=== PATIENT | female | born 1965 | race Caucasian/White ===

== ENCOUNTER 2016-06-03 15:52 | Emergency (ER) | payer MEDICAID ==
[~2016-06-03] VITALS: Ht 152.4 cm; Wt 72.6 kg
[~2016-06-03 15:52] MED LIST: ALBMDI INH; BECL8.7A6 INH
--- NOTE | 2016-06-03 15:55 | NUR ---
Patient to ER bed 3 to gown for evaluation. Side rails up. Report given to Yasmine PORTILLO.
--- NOTE | 2016-06-03 16:07 | NUR ---
Patient to ER C/O severe dizziness with nausea and the feeling of throwing up which started today. Denies any health problems. AAOx4, unlabored breathing, no signs of acute distress.
[2016-06-03 16:11] VITALS: BP_SYST 142
--- NOTE | 2016-06-03 16:22 | NUR ---
ER MARIELOS Car at bedside for evaluation
--- NOTE | 2016-06-03 16:40 | NUR ---
# 20 gauge angiocath placed to right ac. Use of asceptic technique. Opsite placed over site. Blood return noted. Blood for lab drawn from site. Flushed with 10 cc of normal saline. No evidence of infiltration noted. Patient tolerated well.
[2016-06-03] MEDS ORDERED: ONDANSETRON HCL 4 MG/2 ML VIAL IVP ONE (16:45)
[2016-06-03] MEDS ORDERED: NACL 0.9% 1,000 ML IV ONE (16:45)
[2016-06-03 16:56] LABS: BASOPHILS % (AUTO) 0.4 % (0.0-2.0); EOSINOPHILS # (AUTO) 0.2 K/uL (0.0-0.4); EOSINOPHILS % (AUTO) 3.7 % (0.0-4.0); HEMATOCRIT 37.7 % (36-48); HEMOGLOBIN 12.9 g/dL (12.0-16.0); LYMPHOCYTES # (AUTO) 2.1 K/uL (1.0-5.5); LYMPHOCYTES % (AUTO) 35.8 % (20.5-51.5); MEAN CORPUSCULAR HEMOGLOBIN 30 pg (27-31); MEAN CORPUSCULAR HGB CONC 34 % (32-36); MEAN CORPUSCULAR VOLUME 86 fL (79.0-98.0); MONOCYTES # (AUTO) 0.4 K/uL (0.0-1.0); MONOCYTES % (AUTO) 6.9 % (1.7-9.3); NEUTROPHILS # (AUTO) 3.1 K/uL (1.8-7.7); NEUTROPHILS % (AUTO) 53.2 % (40.0-70.0); PLATELET COUNT (AUTO) 219 K/uL (130-430); RED BLOOD CELL COUNT(AUTO) 4.38 MIL/uL (4.2-6.2); RED CELL DISTRIBUTION WIDTH 13.4 % (9.0-15.0); WHITE BLOOD COUNT (AUTO) 5.9 K/uL (4.8-10.8)
[2016-06-03 17:11] LABS: BILIRUBIN,URINE NEGATIVE (NEGATIVE); BLOOD, URINE 1+ (NEGATIVE); CALCIUM 8.6 mg/dL (8.4-11.0); CLARITY/URINE CLEAR (CLEAR); COLOR,URINE YELLOW (YELLOW); CREATININE 0.71 mg/dL (0.55-1.30); GLUCOSE,URINE NEGATIVE (NEGATIVE); KETONES,URINE NEGATIVE (NEGATIVE); LEUKOCYTE ESTERASE ,URINE NEGATIVE (NEGATIVE); NITRITE, URINE NEGATIVE (NEGATIVE); POTASSIUM 3.4 mmol/L (3.5-5.1); PROTEIN URINE NEGATIVE (NEGATIVE); UROBILINOGEN,URINE 0.2 (0.2-1.0)
[2016-06-03 17:16] LABS: ALBUMIN 3.9 g/dL (3.4-4.8); TOTAL BILIRUBIN 0.5 mg/dL (0.0-1.0); TOTAL PROTEIN, SERUM 7.1 g/dL (6.4-8.3)
--- NOTE | 2016-06-03 17:31 | NUR ---
Patient states that she feels much better, denies nausea & dizziness. ER CODE ENFORCEMENT OFFICER Joceline veronica
[2016-06-03 17:35] LABS: BACTERIA,URINE FEW /HPF (None Seen); WBC,URINE 0-3 /HPF (0-3)
[2016-06-03 17:36] LABS: MUCUS,URINE None Seen /LPF (None Seen)
[2016-06-03 17:53] VITALS: BP_SYST 116
--- NOTE | 2016-06-03 17:53 | NUR ---
Patient given written and verbal discharge instructions and verbalizes understanding. ER MD Peng discussed with patient the results and treatment provided. Patient in stable condition. ID arm band removed. IV catheter removed intact and dressing applied, no active bleeding. Rx of meclizine & zofran given. Patient educated on pain management and to follow up with PMD. Pain Scale 0/10. Opportunity for questions provided and answered.
== END 2016-06-03 17:53 | disposition home or self-care (01) ==
LOC: SED 15:52
DX: R42 Dizziness and giddiness (principal); R11.0 Nausea; R19.7 Diarrhea, unspecified; R03.0 Elevated blood-pressure reading, without diagnosis of hypertension; J45.909 Unspecified asthma, uncomplicated; Z88.6 Allergy status to analgesic agent
CPT/HCPCS: 36415; 70450; 80053; 81000; 81025; 84484; 85025; 93005; 96361; 96374; 99285; J2405; J7030

== ENCOUNTER 2016-06-21 17:06 | Emergency (ER) | payer MEDICAID ==
[~2016-06-21] VITALS: Ht 152.4 cm; Wt 81.6 kg
[2016-06-21 17:07] VITALS: BP_SYST 128
[2016-06-21] MEDS: PROCHLORPERAZINE EDISYLATE 10 MG/2 ML VIAL IVP ONE (18:00)
[2016-06-21] MEDS: ONDANSETRON 4 MG ODT TAB PO ONE (18:00)
[2016-06-21] MEDS ORDERED: KETOROLAC TROMETHAMINE 30 MG VIAL IVP ONE (18:00)
[2016-06-21] MEDS: NACL 0.9% 1,000 ML IV ONE (18:00)
[2016-06-21 19:16] LABS: BASOPHILS % (AUTO) 0.2 % (0.0-2.0); EOSINOPHILS % (AUTO) 0.6 % (0.0-4.0); HEMATOCRIT 40.3 % (36-48); HEMOGLOBIN 13.4 g/dL (12.0-16.0); LYMPHOCYTES # (AUTO) 1.7 K/uL (1.0-5.5); LYMPHOCYTES % (AUTO) 21.5 % (20.5-51.5); MEAN CORPUSCULAR HEMOGLOBIN 29 pg (27-31); MEAN CORPUSCULAR HGB CONC 33 % (32-36); MEAN CORPUSCULAR VOLUME 87 fL (79.0-98.0); MONOCYTES # (AUTO) 0.5 K/uL (0.0-1.0); MONOCYTES % (AUTO) 5.9 % (1.7-9.3); NEUTROPHILS # (AUTO) 5.6 K/uL (1.8-7.7); NEUTROPHILS % (AUTO) 71.8 % (40.0-70.0); PLATELET COUNT (AUTO) 244 K/uL (130-430); RED BLOOD CELL COUNT(AUTO) 4.61 MIL/uL (4.2-6.2); RED CELL DISTRIBUTION WIDTH 12.8 % (9.0-15.0); WHITE BLOOD COUNT (AUTO) 7.8 K/uL (4.8-10.8)
[2016-06-21 19:21] LABS: CALCIUM 8.9 mg/dL (8.4-11.0); CREATININE 0.68 mg/dL (0.55-1.30); POTASSIUM 3.7 mmol/L (3.5-5.1)
[2016-06-21 19:25] LABS: TOTAL BILIRUBIN 0.6 mg/dL (0.0-1.0); TOTAL PROTEIN, SERUM 7.4 g/dL (6.4-8.3)
[2016-06-21] MEDS: MAG HYDROX/AL HYDROX/SIMETH 30 ML, BELLADONNA ALKALOIDS/PHENOBARB 10 ML, LIDOCAINE VISC... PO ONE ×3 (20:08)
[2016-06-21] MEDS: PANTOPRAZOLE SODIUM 40 MG TAB PO ONE (20:08)
[2016-06-21] MEDS: PROCHLORPERAZINE EDISYLATE 10 MG/2 ML VIAL IM ONE (20:08)
[2016-06-21 20:53] VITALS: BP_SYST 120
== END 2016-06-21 20:53 | disposition home or self-care (01) ==
LOC: SED 17:06
DX: K21.9 Gastro-esophageal reflux disease without esophagitis (principal); J45.909 Unspecified asthma, uncomplicated; Z88.6 Allergy status to analgesic agent
CPT/HCPCS: 36415; 74176; 80053; 83690; 85025; 96372; 99285; J0780; J2001; Q0162

== ENCOUNTER 2016-06-29 12:17 | Emergency (ER) | payer MEDICAID ==
[~2016-06-29] VITALS: Ht 157.5 cm; Wt 81.6 kg
[2016-06-29 12:23] VITALS: BP_SYST 133
--- NOTE | 2016-06-29 12:37 | NUR ---
ambulated to bed 3
--- NOTE | 2016-06-29 13:16 | NUR ---
Patient ambulated to bed 7.
--- NOTE | 2016-06-29 13:18 | NUR ---
Stable, alert and oriented x4. States was at work today and had sudden onset on "white vision" to right eye. Denies any injury/foreign to eye. States no longer sees white but that vision is "blurry and dim". No discharge, redness, foreign object, or injuries noted to eyes. No other complaints/injuries per patient or noted. Addendum: 06/29/16 at 1338 by LAVERN Denies any injury/foreign to eye.
--- NOTE | 2016-06-29 14:35 | NUR ---
examined pressure of right eye with nicole-pen, pressure 10mmhg
--- NOTE | 2016-06-29 14:44 | NUR ---
Patient given written and verbal discharge instructions and verbalizes understanding. ER MD discussed with patient the results and treatment provided. Given copies of tests performed in ER. Patient in stable condition. ID arm band removed. Rx of none given. Patient educated on pain management and to follow up with PMD. Pain Scale 0/10 Opportunity for questions provided and answered.
[2016-06-29 14:47] VITALS: BP_SYST 128
[2016-06-29] MEDS ORDERED: TETRACAINE (PONTOCAINE) TOPICAL 30 ML SOLUTION TP ONE (15:00)
== END 2016-06-29 14:41 | disposition home or self-care (01) ==
LOC: SED 12:17
DX: H53.8 Other visual disturbances (principal); J45.909 Unspecified asthma, uncomplicated; Z88.6 Allergy status to analgesic agent
CPT/HCPCS: 99283

== ENCOUNTER 2016-09-19 16:14 | Emergency (ER) | payer MEDICAID ==
[~2016-09-19] VITALS: Ht 152.4 cm; Wt 80.7 kg
[2016-09-19 16:14] VITALS: BP_SYST 131
[2016-09-19] MEDS ORDERED: ACETAMINOPHEN 500 MG TABLET PO ONE (16:45)
[2016-09-19 17:45] VITALS: BP_SYST 128
== END 2016-09-19 17:45 | disposition home or self-care (01) ==
LOC: SED 16:14
DX: S93.402A Sprain of unspecified ligament of left ankle, initial encounter (principal); J45.909 Unspecified asthma, uncomplicated; Z88.6 Allergy status to analgesic agent; W10.9XXA Fall (on) (from) unspecified stairs and steps, initial encounter; Y93.01 Activity, walking, marching and hiking; Y92.098 Other place in other non-institutional residence as the place of occurrence of the external cause; Y99.8 Other external cause status
CPT/HCPCS: 99284

== ENCOUNTER 2016-12-04 18:11 | Emergency (ER) | payer MEDICAID ==
[~2016-12-04] VITALS: Ht 152.4 cm; Wt 74.8 kg
[2016-12-04 18:29] VITALS: BP_SYST 117
[2016-12-04] MEDS ORDERED: KETOROLAC TROMETHAMINE 60 MG/2 ML VIAL IM ONE (20:00)
[2016-12-04] MEDS ORDERED: SUMAtriptan SUCCINATE 6 MG/0.5 ML VIAL SUBCUT ONE (20:00)
[2016-12-04] MEDS ORDERED: OXYCODONE/ACETAMINOPHEN *10*mg/325 mg TABLET PO ONE (20:00)
[2016-12-04] MEDS ORDERED: METOCLOPRAMIDE HCL 10 MG TABLET PO ONE (21:15)
[2016-12-04] MEDS ORDERED: PROCHLORPERAZINE MALEATE 10 MG TABLET PO ONE (21:15)
[2016-12-04 22:10] VITALS: BP_SYST 121
== END 2016-12-04 22:10 | disposition home or self-care (01) ==
LOC: SED 18:11
DX: G43.909 Migraine, unspecified, not intractable, without status migrainosus (principal); M79.632 Pain in left forearm; J45.909 Unspecified asthma, uncomplicated; Z88.6 Allergy status to analgesic agent
CPT/HCPCS: 96372; 99284; J1885; J3030; J8597; Q0164

== ENCOUNTER 2016-12-23 15:22 | Emergency (ER) | payer MEDICAID ==
[~2016-12-23] VITALS: Ht 152.4 cm; Wt 74.8 kg
[2016-12-23 15:27] VITALS: BP_SYST 126
[2016-12-23 16:29] VITALS: BP_SYST 126
== END 2016-12-23 16:29 | disposition home or self-care (01) ==
LOC: SED 15:22
DX: L02.413 Cutaneous abscess of right upper limb (principal); L03.115 Cellulitis of right lower limb; J45.909 Unspecified asthma, uncomplicated; Z88.6 Allergy status to analgesic agent; W57.XXXA Bitten or stung by nonvenomous insect and other nonvenomous arthropods, initial encounter; Y93.89 Activity, other specified; Y92.89 Other specified places as the place of occurrence of the external cause; Y99.8 Other external cause status
CPT/HCPCS: 99283

== ENCOUNTER 2017-10-25 07:14 | Emergency (ER) | payer MEDICAID ==
[~2017-10-25] VITALS: Ht 152.4 cm; Wt 90.7 kg
[2017-10-25 07:14] VITALS: BP_SYST 116
[2017-10-25] MEDS ORDERED: NACL 0.9% 1,000 ML IV ONE (07:48)
[2017-10-25] MEDS ORDERED: KETOROLAC TROMETHAMINE 30 MG VIAL IVP ONE ×2 (08:00→10:00)
[2017-10-25 08:06] LABS: BASOPHILS # (AUTO) 0.1 K/uL (0.0-0.2); BASOPHILS % (AUTO) 0.9 % (0.0-2.0); EOSINOPHILS # (AUTO) 0.2 K/uL (0.0-0.4); EOSINOPHILS % (AUTO) 3.7 % (0.0-4.0); HEMATOCRIT 38.9 % (36-48); HEMOGLOBIN 13.2 g/dL (12.0-16.0); LYMPHOCYTES # (AUTO) 2.2 K/uL (1.0-5.5); LYMPHOCYTES % (AUTO) 38.3 % (20.5-51.5); MEAN CORPUSCULAR HEMOGLOBIN 30 pg (27-31); MEAN CORPUSCULAR HGB CONC 34 % (32-36); MEAN CORPUSCULAR VOLUME 89 fL (79.0-98.0); MONOCYTES # (AUTO) 0.4 K/uL (0.0-1.0); MONOCYTES % (AUTO) 6.8 % (1.7-9.3); NEUTROPHILS # (AUTO) 2.8 K/uL (1.8-7.7); NEUTROPHILS % (AUTO) 50.3 % (40.0-70.0); PLATELET COUNT (AUTO) 257 K/uL (130-430); RED BLOOD CELL COUNT(AUTO) 4.39 MIL/uL (4.2-6.2); RED CELL DISTRIBUTION WIDTH 13.3 % (9.0-15.0); WHITE BLOOD COUNT (AUTO) 5.7 K/uL (4.8-10.8)
[2017-10-25] MEDS ORDERED: ONDANSETRON HCL 4 MG/2 ML VIAL IVP ONE (08:15)
[2017-10-25 08:19] LABS: CREATININE 0.74 mg/dL (0.55-1.30); POTASSIUM 3.3 mmol/L (3.5-5.1)
[2017-10-25 08:27] LABS: ALBUMIN 3.6 g/dL (3.4-4.8); TOTAL BILIRUBIN 0.9 mg/dL (0.0-1.0)
[2017-10-25 08:49] LABS: BILIRUBIN,URINE NEGATIVE (NEGATIVE); BLOOD, URINE 3+ (NEGATIVE); CLARITY/URINE HAZY (CLEAR); COLOR,URINE YELLOW (YELLOW); GLUCOSE,URINE NEGATIVE (NEGATIVE); KETONES,URINE NEGATIVE (NEGATIVE); LEUKOCYTE ESTERASE ,URINE NEGATIVE (NEGATIVE); NITRITE, URINE NEGATIVE (NEGATIVE); PH,URINE 5.5 (5.0-8.0); PROTEIN URINE NEGATIVE (NEGATIVE); UROBILINOGEN,URINE 0.2 (0.2-1.0)
[2017-10-25 09:14] LABS: BACTERIA,URINE FEW /HPF (None Seen); MUCUS,URINE 1+ /LPF (None Seen); WBC,URINE 0-3 /HPF (0-3)
[2017-10-25] MEDS ORDERED: fentaNYL CITRATE/PF 100 MCG/2 ML AMP IVP ONE (10:30)
[2017-10-25 12:05] VITALS: BP_SYST 131
== END 2017-10-25 12:05 | disposition home or self-care (01) ==
LOC: SED 07:14
DX: R10.9 Unspecified abdominal pain (principal); R11.0 Nausea; R19.7 Diarrhea, unspecified; J45.909 Unspecified asthma, uncomplicated; Z87.442 Personal history of urinary calculi; Z88.1 Allergy status to other antibiotic agents; Z91.018 Allergy to other foods
CPT/HCPCS: 36415; 74176; 76700; 80053; 81000; 85025; 96361; 96374; 96375; 99285; J1885; J2405; J3010; J7030

== ENCOUNTER 2018-03-09 08:07 | Emergency (ER) | payer MEDICAID ==
[~2018-03-09] VITALS: Ht 152.4 cm; Wt 81.6 kg
[2018-03-09 08:19] VITALS: BP_SYST 118
--- NOTE | 2018-03-09 08:32 | NUR ---
Patient to ER bed 6 to gown for evaluation. Side rails up.
--- NOTE | 2018-03-09 08:40 | NUR ---
Pt presents to ED c/o numbess in hands and R face. Pt h/o asthma,chronic low back pain. P
--- NOTE | 2018-03-09 08:42 | NUR ---
ER Dr. Gee at bedside examining patient.
--- NOTE | 2018-03-09 09:01 | NUR ---
Patient transported to radiology via WC, accompanied by rad staff.
[2018-03-09 10:51] LABS: STREPTOCOCCUS A SCREEN (RAPID) NEGATIVE (NEGATIVE)
[2018-03-09 10:59] LABS: INFLUENZA A&B ANTIGEN SCREEN NEGATIVE FOR A & B (NEGATIVE)
--- NOTE | 2018-03-09 11:15 | NUR ---
Patient given written and verbal discharge instructions and verbalizes understanding. ER MD discussed with patient the results and treatment provided. Patient in stable condition. ID arm band removed. Rx of Tramadol 50mg tablets given. Patient educated on pain management and to follow up with PMD. Pain Scale 2/10. Opportunity for questions provided and answered. Medication side effect fact sheet provided.
[2018-03-09 11:21] VITALS: BP_SYST 118
== END 2018-03-09 11:15 | disposition home or self-care (01) ==
LOC: SED 08:07
DX: M54.12 Radiculopathy, cervical region (principal); M54.16 Radiculopathy, lumbar region; J45.909 Unspecified asthma, uncomplicated; M19.90 Unspecified osteoarthritis, unspecified site; G43.909 Migraine, unspecified, not intractable, without status migrainosus; Z87.442 Personal history of urinary calculi; Z88.6 Allergy status to analgesic agent; Z91.018 Allergy to other foods
CPT/HCPCS: 36415; 72040-TC; 72100-TC; 86403; 86710; 87081; 93005; 99284; J7040

== ENCOUNTER 2018-05-20 10:04 | Emergency (ER) | payer MEDICAID ==
[~2018-05-20] VITALS: Ht 162.6 cm; Wt 88.0 kg
[2018-05-20 10:08] VITALS: BP_SYST 135
--- NOTE | 2018-05-20 10:10 | NUR ---
Placed in room 7 . Placed on recycling assistant, blood pressure machine and pulse oximeter. To gown for exam. Side rails up. Report given to Becca PORTILLO.
--- NOTE | 2018-05-20 10:15 | NUR ---
ER at bedside examining patient.
--- NOTE | 2018-05-20 10:31 | NUR ---
Patient presented to ER with intermittent chest pain started last night with SOB. Patient ambulatory to ER, arrived via [employer]. Pt A&Ox4, afebrile, respirations equal bilat, EKG complete upon arrival, placed on playground monitor. Patient states intermittent chest pains 7/10 and no SOB at this time. Patirent denies N/V/D at this time.
[2018-05-20] MEDS ORDERED: NACL 0.9% 1,000 ML IV ONE (10:45)
[2018-05-20] MEDS ORDERED: ACETAMINOPHEN 500 MG TABLET PO ONE (10:45)
[2018-05-20 11:00] LABS: HEMATOCRIT 41.1 % (36-48); HEMOGLOBIN 13.6 g/dL (12.0-16.0); MEAN CORPUSCULAR HEMOGLOBIN 30 pg (27-31); MEAN CORPUSCULAR HGB CONC 33 % (32-36); MEAN CORPUSCULAR VOLUME 90 fL (79.0-98.0); PLATELET COUNT (AUTO) 226 K/uL (130-430); RED BLOOD CELL COUNT(AUTO) 4.59 MIL/uL (4.2-6.2); RED CELL DISTRIBUTION WIDTH 14.3 % (9.0-15.0); WHITE BLOOD COUNT (AUTO) 5.2 K/uL (4.8-10.8)
[2018-05-20 11:01] LABS: BASOPHILS % (AUTO) 0.7 % (0.0-2.0); EOSINOPHILS # (AUTO) 0.3 K/uL (0.0-0.4); EOSINOPHILS % (AUTO) 5.4 % (0.0-4.0); LYMPHOCYTES # (AUTO) 1.9 K/uL (1.0-5.5); LYMPHOCYTES % (AUTO) 36.3 % (20.5-51.5); MONOCYTES # (AUTO) 0.3 K/uL (0.0-1.0); MONOCYTES % (AUTO) 6.1 % (1.7-9.3); NEUTROPHILS # (AUTO) 2.7 K/uL (1.8-7.7); NEUTROPHILS % (AUTO) 51.5 % (40.0-70.0)
--- NOTE | 2018-05-20 11:10 | NUR ---
PT MEDICATED FOR PAIN.
[2018-05-20 11:13] LABS: CALCIUM 9.2 mg/dL (8.4-11.0); CREATININE 0.64 mg/dL (0.55-1.30); POTASSIUM 3.8 mmol/L (3.5-5.1)
[2018-05-20 11:20] LABS: ALBUMIN 3.6 g/dL (3.4-4.8); TOTAL BILIRUBIN 0.7 mg/dL (0.0-1.0)
[2018-05-20 12:10] VITALS: BP_SYST 138
--- NOTE | 2018-05-20 12:10 | NUR ---
Patient given written and verbal discharge instructions and verbalizes understanding. ER MD discussed with patient the results and treatment provided. Patient in stable condition. ID arm band removed. IV catheter removed intact and dressing applied, no active bleeding. Rx of tramadol given. Patient educated on pain management and to follow up with PMD. Pain Scale 0. Opportunity for questions provided and answered. Medication side effect fact sheet provided.
== END 2018-05-20 12:10 | disposition home or self-care (01) ==
LOC: SED 10:04
DX: R07.89 Other chest pain (principal); J45.909 Unspecified asthma, uncomplicated; G43.909 Migraine, unspecified, not intractable, without status migrainosus; M19.90 Unspecified osteoarthritis, unspecified site; R03.0 Elevated blood-pressure reading, without diagnosis of hypertension; Z87.442 Personal history of urinary calculi; Z88.6 Allergy status to analgesic agent; Z91.018 Allergy to other foods; Z79.899 Other long term (current) drug therapy
CPT/HCPCS: 36415; 71045; 80053; 82550; 83880; 84484; 85025; 93005; 99284; J7030

== ENCOUNTER 2018-07-01 13:57 | Emergency (ER) | payer MEDICAID ==
[~2018-07-01] VITALS: Ht 152.4 cm; Wt 85.3 kg
--- NOTE | 2018-07-01 13:57 | NUR ---
Placed in room 08 . Placed on cardiac nurse specialist, blood pressure machine and pulse oximeter. To gown for exam. Side rails up. Report given to Rama PORTILLO.
[2018-07-01 13:58] VITALS: BP_SYST 158
--- NOTE | 2018-07-01 14:04 | NUR ---
Respiratory at bedside for breathing tx
--- NOTE | 2018-07-01 14:09 | NUR ---
ER Dr. BARON at bedside examining patient.
--- NOTE | 2018-07-01 14:10 | NUR ---
PATIENT CAME IN COMPLAINING OF SOB AND COUGH. PATIENT HAS HISTORY OF ASTHMA. PATIENT SAID IT STARTED 3 HOURS AGO. PATIENT STATES HER ALBUTEROL WASNT WORKING. PAITENT COMPLAINING OF PAIN IN CHEST NON RADIATING 08/10 BECAUSE OF SOB. PATIENT COMPLAINING OF SOME NAUSEA BUT NO VOMITING. PATIENT ALERT AND ORIENTED X4.
[2018-07-01] MEDS ORDERED: IPRATROPIUM/ALBUTEROL SULFATE 3 ML AMPUL.NEB (DUONEB) ONE (14:15)
[2018-07-01] MEDS ORDERED: methylPREDNISolone SOD SUCC/PF 62.5 MG/ML VIAL IM ONE (14:15)
[2018-07-01] MEDS ORDERED: ONDANSETRON HCL 4 MG/2 ML VIAL IM ONE (14:15)
[2018-07-01] MEDS ORDERED: IPRATROPIUM/ALBUTEROL SULFATE 3 ML AMPUL.NEB (DUONEB) INH ONE ×2 (14:15)
--- NOTE | 2018-07-01 15:22 | NUR ---
Patient given written and verbal discharge instructions and verbalizes understanding. ER Dr. Gee discussed with patient the results and treatment provided. Patient in stable condition. ID arm band removed. Rx of Prednisone given. Patient educated on pain management and to follow up with PMD. Pain Scale 0/10. Opportunity for questions provided and answered. Medication side effect fact sheet provided.
[2018-07-01 15:24] VITALS: BP_SYST 150
== END 2018-07-01 15:22 | disposition home or self-care (01) ==
LOC: SED 13:57
DX: J44.1 Chronic obstructive pulmonary disease with (acute) exacerbation (principal); R11.0 Nausea; R03.0 Elevated blood-pressure reading, without diagnosis of hypertension; M19.90 Unspecified osteoarthritis, unspecified site; G43.909 Migraine, unspecified, not intractable, without status migrainosus; Z87.442 Personal history of urinary calculi; Z88.6 Allergy status to analgesic agent; Z91.018 Allergy to other foods; Z79.899 Other long term (current) drug therapy
CPT/HCPCS: 71045; 93005; 94640; 96372; 99284; J2405; J2930; J7620

== ENCOUNTER 2018-10-27 20:05 | Emergency (ER) | payer MEDICAID ==
[~2018-10-27] VITALS: Ht 152.4 cm; Wt 86.2 kg
[2018-10-27 20:09] VITALS: BP_SYST 110
[2018-10-27] MEDS ORDERED: ACETAMINOPHEN 500 MG TABLET PO ONE (22:45)
[2018-10-27 23:20] VITALS: BP_SYST 110
== END 2018-10-27 23:20 | disposition home or self-care (01) ==
LOC: SED 20:05
DX: S93.602A Unspecified sprain of left foot, initial encounter (principal); X50.9XXA Other and unspecified overexertion or strenuous movements or postures, initial encounter; Y93.89 Activity, other specified; Y92.488 Other paved roadways as the place of occurrence of the external cause; Y99.8 Other external cause status
CPT/HCPCS: 99283

== ENCOUNTER 2018-12-07 20:40 | Emergency (ER) | payer MEDICAID ==
[~2018-12-07] VITALS: Ht 162.6 cm; Wt 83.9 kg
[2018-12-07 20:49] VITALS: BP_SYST 142
[2018-12-07] MEDS ORDERED: KETOROLAC TROMETHAMINE 30 MG VIAL IM ONE (21:00)
[2018-12-07 21:16] LABS: BASOPHILS % (AUTO) 0.5 % (0.0-2.0); EOSINOPHILS # (AUTO) 0.3 K/uL (0.0-0.4); EOSINOPHILS % (AUTO) 3.7 % (0.0-4.0); HEMATOCRIT 38.9 % (36-48); HEMOGLOBIN 12.9 g/dL (12.0-16.0); LYMPHOCYTES # (AUTO) 2.7 K/uL (1.0-5.5); LYMPHOCYTES % (AUTO) 35.5 % (20.5-51.5); MEAN CORPUSCULAR HEMOGLOBIN 30 pg (27-31); MEAN CORPUSCULAR HGB CONC 33 % (32-36); MEAN CORPUSCULAR VOLUME 90 fL (79.0-98.0); MONOCYTES # (AUTO) 0.5 K/uL (0.0-1.0); MONOCYTES % (AUTO) 6.8 % (1.7-9.3); NEUTROPHILS # (AUTO) 4.1 K/uL (1.8-7.7); NEUTROPHILS % (AUTO) 53.5 % (40.0-70.0); PLATELET COUNT (AUTO) 232 K/uL (130-430); RED BLOOD CELL COUNT(AUTO) 4.31 MIL/uL (4.2-6.2); RED CELL DISTRIBUTION WIDTH 14.1 % (9.0-15.0); WHITE BLOOD COUNT (AUTO) 7.7 K/uL (4.8-10.8)
[2018-12-07 21:29] LABS: ANION GAP 4 (5-15); CALCIUM 8.4 mg/dL (8.4-11.0); CHLORIDE 109 mmol/L (98-107); CREATININE 0.78 mg/dL (0.55-1.30); GLUCOSE 95 mg/dL (70-99); SODIUM SERUM 140 mmol/L (136-145); UREA NITROGEN, BLOOD 13 mg/dL (8-21)
[2018-12-07 21:30] LABS: GFR AFRICAN AMERICAN 99 mL/min (>90)
[2018-12-07 21:39] LABS: ALANINE AMINOTRANSFERASE 18 U/L (12-78); ALBUMIN 3.4 g/dL (3.4-4.8); ASPARTATE AMINOTRANSFERASE 13 U/L (10-37); LIPASE 90 U/L (73-393); TOTAL BILIRUBIN 0.4 mg/dL (0.0-1.0)
[2018-12-07] MEDS ORDERED: DIAZEPAM 5 MG TABLET (VALIUM) PO ONE (22:15)
[2018-12-08 00:35] VITALS: BP_SYST 128
== END 2018-12-08 00:35 | disposition home or self-care (01) ==
LOC: SED 20:40
DX: R07.89 Other chest pain (principal); J45.909 Unspecified asthma, uncomplicated; M19.90 Unspecified osteoarthritis, unspecified site; G43.909 Migraine, unspecified, not intractable, without status migrainosus; Z87.442 Personal history of urinary calculi; Z88.6 Allergy status to analgesic agent; Z91.018 Allergy to other foods; Z79.899 Other long term (current) drug therapy
CPT/HCPCS: 36415; 71045; 80053; 83690; 84484; 85025; 85379; 93005; 96372; 99284; J1885

== ENCOUNTER 2019-03-12 09:23 | Emergency (ER) | payer MEDICAID ==
[~2019-03-12] VITALS: Ht 152.4 cm; Wt 81.6 kg
[2019-03-12 09:29] VITALS: BP_SYST 138
[2019-03-12] MEDS ORDERED: ALBUTEROL SULFATE 0.083% 2.5 MG/3 ML VIAL.NEB INH ONE (10:00)
[2019-03-12] MEDS ORDERED: IPRATROPIUM BROM 0.5 MG/2.5 ML VIAL.NEB (ATROVENT) INH ONE (10:00)
[2019-03-12] MEDS ORDERED: PREDNISONE 20 MG TABLET PO ONE (10:00)
[2019-03-12 10:20] LABS: BASOPHILS % (AUTO) 0.4 % (0.0-2.0); EOSINOPHILS # (AUTO) 0.2 K/uL (0.0-0.4); EOSINOPHILS % (AUTO) 2.7 % (0.0-4.0); HEMATOCRIT 40.7 % (36-48); HEMOGLOBIN 13.4 g/dL (12.0-16.0); LYMPHOCYTES # (AUTO) 1.7 K/uL (1.0-5.5); LYMPHOCYTES % (AUTO) 27.1 % (20.5-51.5); MEAN CORPUSCULAR HEMOGLOBIN 30 pg (27-31); MEAN CORPUSCULAR HGB CONC 33 % (32-36); MEAN CORPUSCULAR VOLUME 90 fL (79.0-98.0); MONOCYTES # (AUTO) 0.4 K/uL (0.0-1.0); MONOCYTES % (AUTO) 5.9 % (1.7-9.3); NEUTROPHILS # (AUTO) 3.9 K/uL (1.8-7.7); NEUTROPHILS % (AUTO) 63.9 % (40.0-70.0); PLATELET COUNT (AUTO) 245 K/uL (130-430); RED BLOOD CELL COUNT(AUTO) 4.52 MIL/uL (4.2-6.2); RED CELL DISTRIBUTION WIDTH 14.1 % (9.0-15.0); WHITE BLOOD COUNT (AUTO) 6.1 K/uL (4.8-10.8)
[2019-03-12 10:23] LABS: CALCIUM 8.7 mg/dL (8.4-11.0); CREATININE 0.56 mg/dL (0.55-1.30); POTASSIUM 3.5 mmol/L (3.5-5.1)
[2019-03-12 12:14] VITALS: BP_SYST 124
== END 2019-03-12 12:15 | disposition home or self-care (01) ==
LOC: SED 09:23
DX: J45.909 Unspecified asthma, uncomplicated (principal); G43.909 Migraine, unspecified, not intractable, without status migrainosus; Z87.442 Personal history of urinary calculi; Z88.6 Allergy status to analgesic agent; Z88.8 Allergy status to other drugs, medicaments and biological substances
CPT/HCPCS: 36415; 71045; 80048; 82550; 83880; 84484; 85025; 93005; 94640; 99284; J7512; J7613

== ENCOUNTER 2020-01-12 16:55 | Emergency (ER) | payer MEDICAID ==
[~2020-01-12] VITALS: Ht 152.4 cm; Wt 81.6 kg
[2020-01-12 16:55] VITALS: BP_SYST 135
--- NOTE | 2020-01-12 16:55 | NUR ---
Patient triaged and placed in waiting room. VSS and patient appears in no acute distress at this time. Accompanied by SELF, awaiting available bed, and MD notified of need for MSE.
--- NOTE | 2020-01-12 17:10 | NUR ---
DR HOLLIS EVALUATING PT IN TRIAGE ROOM
[2020-01-12 19:13] VITALS: BP_SYST 131
--- NOTE | 2020-01-12 19:15 | NUR ---
Patient given written and verbal discharge instructions and verbalizes understanding. ER MD discussed with patient the results and treatment provided. Patient in stable condition. ID arm band removed. Rx of NONE given. Patient educated on pain management and to follow up with PMD. Pain Scale 0/10. Opportunity for questions provided and answered. Medication side effect fact sheet provided. Addendum: 01/12/20 at 1916 by ZHEN PRESCRIPTION FOR MOTRIN GIVEN
== END 2020-01-12 19:15 | disposition home or self-care (01) ==
LOC: SED 16:55
DX: M25.572 Pain in left ankle and joints of left foot (principal); M79.672 Pain in left foot; J45.909 Unspecified asthma, uncomplicated; G43.909 Migraine, unspecified, not intractable, without status migrainosus; Z87.442 Personal history of urinary calculi; Z79.899 Other long term (current) drug therapy; Z88.6 Allergy status to analgesic agent; Z91.018 Allergy to other foods
CPT/HCPCS: 99284

== ENCOUNTER 2020-02-01 09:46 | Emergency (ER) | payer MEDICAID ==
[~2020-02-01] VITALS: Ht 152.4 cm; Wt 74.8 kg
[2020-02-01 09:46] VITALS: BP_SYST 110
--- NOTE | 2020-02-01 09:50 | NUR ---
Patient triaged and placed in waiting room. VSS and patient appears in no acute distress at this time. Accompanied by SELF, awaiting available bed, and MD notified of need for MSE.
--- NOTE | 2020-02-01 11:30 | NUR ---
BROUGHT BACK TO BED #3 VIA WHEELCHAIR, PLACED IN BED AND REPORT GIVEN TO ERIKA
--- NOTE | 2020-02-01 11:32 | NUR ---
DR ALEXANDER AT BEDSIDE FOR EVALUATION
--- NOTE | 2020-02-01 11:35 | NUR ---
ORTHO BOOT PLACED ON PT, TOLERATED IT WELL.
[2020-02-01 12:06] VITALS: BP_SYST 117
--- NOTE | 2020-02-01 12:07 | NUR ---
Patient given written and verbal discharge instructions and verbalizes understanding. ER MD discussed with patient the results and treatment provided. Patient in stable condition. ID arm band removed. Rx of NONE given. Patient educated on pain management and to follow up with PMD. Pain Scale 0/10. Opportunity for questions provided and answered. Medication side effect fact sheet provided.
== END 2020-02-01 12:06 | disposition home or self-care (01) ==
LOC: SED 09:46
DX: S93.492A Sprain of other ligament of left ankle, initial encounter (principal); J45.909 Unspecified asthma, uncomplicated; G43.909 Migraine, unspecified, not intractable, without status migrainosus; Z87.442 Personal history of urinary calculi; Z88.6 Allergy status to analgesic agent; Z91.018 Allergy to other foods; X50.9XXA Other and unspecified overexertion or strenuous movements or postures, initial encounter; Y93.89 Activity, other specified; Y92.89 Other specified places as the place of occurrence of the external cause; Y99.8 Other external cause status
CPT/HCPCS: 99283

== ENCOUNTER 2020-06-14 11:18 | Emergency (ER) | payer MEDICAID ==
[~2020-06-14] VITALS: Ht 152.4 cm; Wt 81.6 kg
[2020-06-14 11:18] VITALS: BP_SYST 122
[2020-06-14 12:20] LABS: BASOPHILS % (AUTO) 0.4 % (0.0-2.0); EOSINOPHILS # (AUTO) 0.2 K/uL (0.0-0.4); EOSINOPHILS % (AUTO) 3.1 % (0.0-4.0); HEMATOCRIT 41.6 % (36-48); HEMOGLOBIN 13.6 g/dL (12.0-16.0); LYMPHOCYTES # (AUTO) 2.4 K/uL (1.0-5.5); LYMPHOCYTES % (AUTO) 40.5 % (20.5-51.5); MEAN CORPUSCULAR HEMOGLOBIN 29 pg (27-31); MEAN CORPUSCULAR HGB CONC 33 % (32-36); MEAN CORPUSCULAR VOLUME 89 fL (79.0-98.0); MONOCYTES # (AUTO) 0.4 K/uL (0.0-1.0); MONOCYTES % (AUTO) 7.1 % (1.7-9.3); NEUTROPHILS # (AUTO) 2.8 K/uL (1.8-7.7); NEUTROPHILS % (AUTO) 48.9 % (40.0-70.0); PLATELET COUNT (AUTO) 234 K/uL (130-430); RED BLOOD CELL COUNT(AUTO) 4.68 MIL/uL (4.2-6.2); RED CELL DISTRIBUTION WIDTH 14.3 % (9.0-15.0); WHITE BLOOD COUNT (AUTO) 5.8 K/uL (4.8-10.8)
[2020-06-14 12:26] LABS: CALCIUM 8.9 mg/dL (8.4-11.0); CREATININE 0.71 mg/dL (0.55-1.30)
[2020-06-14 12:32] LABS: ALBUMIN 3.8 g/dL (3.4-4.8); TOTAL BILIRUBIN 0.9 mg/dL (0.0-1.0)
[2020-06-14 14:02] LABS: BILIRUBIN,URINE NEGATIVE (NEGATIVE); BLOOD, URINE 1+ (NEGATIVE); CLARITY/URINE CLEAR (CLEAR); COLOR,URINE YELLOW (YELLOW); GLUCOSE,URINE NEGATIVE (NEGATIVE); KETONES,URINE NEGATIVE (NEGATIVE); LEUKOCYTE ESTERASE ,URINE NEGATIVE (NEGATIVE); NITRITE, URINE NEGATIVE (NEGATIVE); PH,URINE 6.5 (5.0-8.0); PROTEIN URINE NEGATIVE (NEGATIVE); UROBILINOGEN,URINE 0.2 (0.2-1.0)
[2020-06-14 14:09] LABS: BACTERIA,URINE RARE /HPF (None Seen); MUCUS,URINE 1+ /LPF (None Seen); RBC,URINE 0-3 /HPF (0-3); WBC,URINE 0-3 /HPF (0-3)
[2020-06-14] MEDS ORDERED: cefTRIAXone 1 GM IVPB PREMIX 50 ML IV ONE (14:45)
[2020-06-14] MEDS ORDERED: NITR-85 PO (14:46)
[2020-06-14] MEDS ORDERED: PHEN16.236 PO (14:46)
[2020-06-14 15:03] VITALS: BP_SYST 122
== END 2020-06-14 15:05 | disposition home or self-care (01) ==
LOC: SED 11:18
DX: K62.5 Hemorrhage of anus and rectum (principal); N39.0 Urinary tract infection, site not specified; R10.10 Upper abdominal pain, unspecified; J45.909 Unspecified asthma, uncomplicated; G43.909 Migraine, unspecified, not intractable, without status migrainosus; Z87.442 Personal history of urinary calculi; Z88.6 Allergy status to analgesic agent; Z91.018 Allergy to other foods
CPT/HCPCS: 36415; 76376; 80053; 81000-TC; 82272; 83690-TC; 85025; 99284

== ENCOUNTER 2020-10-26 12:26 | Emergency (ER) | payer MEDICAID ==
[~2020-10-26] VITALS: Ht 152.4 cm; Wt 68.0 kg
[~2020-10-26 12:26] MED LIST changes: +NITR-85 PO
[2020-10-26 12:30] VITALS: BP_SYST 112
--- NOTE | 2020-10-26 12:35 | NUR ---
Patient triaged and placed in waiting room. VSS and patient appears in no acute distress at this time. Accompanied by SELF, awaiting available bed, and MD notified of need for MSE. EKG WAS DONE UPON ARRIVAL
--- NOTE | 2020-10-26 14:02 | NUR ---
BROUGHT BACK TO HALLWAY BED AND WILL ASSUME CARE
--- NOTE | 2020-10-26 14:17 | NUR ---
PT HAS ASKED FOR PAIN MEDICATION MULTIPLE TIMES
--- NOTE | 2020-10-26 14:20 | NUR ---
DR TOM AT BEDSIDE FOR EVALUATION
[2020-10-26] MEDS ORDERED: DIPHENHYDRAMINE INJ 50 MG/ML VIAL IVP ONE (14:30)
[2020-10-26] MEDS ORDERED: KETOROLAC TROMETHAMINE 15 MG VIAL IVP ONE (14:30)
[2020-10-26] MEDS ORDERED: LevALBUTEROL HCL 1.25 MG/0.5 ML *CONC.* VIAL.NEB (XOPENEX CONC.) INH ONE (14:30)
--- NOTE | 2020-10-26 14:40 | NUR ---
Respiratory at bedside for breathing treatment
--- NOTE | 2020-10-26 14:50 | NUR ---
# 20 gauge angiocath placed to RAC. Use of asceptic technique. Opsite placed over site. Blood return noted. Blood for lab drawn from site. Flushed with 10 cc of normal saline. No evidence of infiltration noted. Patient tolerated well.
[2020-10-26 15:37] LABS: CALCIUM 9.1 mg/dL (8.4-11.0); CREATININE 0.56 mg/dL (0.55-1.30); POTASSIUM 3.6 mmol/L (3.5-5.1)
[2020-10-26 15:48] LABS: ALBUMIN 3.7 g/dL (3.4-4.8); TOTAL BILIRUBIN 0.6 mg/dL (0.0-1.0)
[2020-10-26 15:50] LABS: BASOPHILS % (AUTO) 0.4 % (0.0-2.0); EOSINOPHILS # (AUTO) 0.1 K/uL (0.0-0.4); EOSINOPHILS % (AUTO) 1.3 % (0.0-4.0); HEMATOCRIT 39.3 % (36-48); HEMOGLOBIN 12.8 g/dL (12.0-16.0); LYMPHOCYTES # (AUTO) 2.5 K/uL (1.0-5.5); LYMPHOCYTES % (AUTO) 34.5 % (20.5-51.5); MEAN CORPUSCULAR HEMOGLOBIN 30 pg (27-31); MEAN CORPUSCULAR HGB CONC 33 % (32-36); MEAN CORPUSCULAR VOLUME 92 fL (79.0-98.0); MONOCYTES # (AUTO) 0.4 K/uL (0.0-1.0); NEUTROPHILS # (AUTO) 4.3 K/uL (1.8-7.7); NEUTROPHILS % (AUTO) 58.8 % (40.0-70.0); PLATELET COUNT (AUTO) 251 K/uL (130-430); RED BLOOD CELL COUNT(AUTO) 4.28 MIL/uL (4.2-6.2); RED CELL DISTRIBUTION WIDTH 13.8 % (9.0-15.0); WHITE BLOOD COUNT (AUTO) 7.4 K/uL (4.8-10.8)
--- NOTE | 2020-10-26 16:30 | NUR ---
Patient given written and verbal discharge instructions and verbalizes understanding. ER MD discussed with patient the results and treatment provided. Patient in stable condition. ID arm band removed. IV catheter removed intact and dressing applied, no active bleeding. No prescriptions given. Patient educated on pain management and to follow up with PMD. Pain Scale 0. Opportunity for questions provided and answered. Medication side effect fact sheet provided.
[2020-10-26 16:43] VITALS: BP_SYST 112
== END 2020-10-26 16:30 | disposition home or self-care (01) ==
LOC: SED 12:26
DX: M94.0 Chondrocostal junction syndrome [Tietze] (principal); J45.909 Unspecified asthma, uncomplicated; Z88.6 Allergy status to analgesic agent; Z88.8 Allergy status to other drugs, medicaments and biological substances; Z79.899 Other long term (current) drug therapy
CPT/HCPCS: 36415; 71045; 80053; 83880; 84484; 85025; 93005; 94640; 96374; 96375; 99285; J1200; J1885; J7612

== ENCOUNTER 2021-05-21 13:54 | Emergency (ER) | payer MEDICAID ==
[~2021-05-21] VITALS: Ht 152.4 cm; Wt 77.1 kg
[2021-05-21 14:01] VITALS: BP_SYST 124
[2021-05-21] MEDS ORDERED: ACETAMINOPHEN 500 MG TABLET PO ONE (14:15)
[2021-05-21 14:44] LABS: BASOPHILS % (AUTO) 0.4 % (0.0-2.0); EOSINOPHILS # (AUTO) 0.1 K/uL (0.0-0.4); EOSINOPHILS % (AUTO) 1.6 % (0.0-4.0); HEMATOCRIT 40.4 % (36-48); HEMOGLOBIN 13.2 g/dL (12.0-16.0); LYMPHOCYTES # (AUTO) 2.2 K/uL (1.0-5.5); LYMPHOCYTES % (AUTO) 35.3 % (20.5-51.5); MEAN CORPUSCULAR HEMOGLOBIN 29 pg (27-31); MEAN CORPUSCULAR HGB CONC 33 % (32-36); MEAN CORPUSCULAR VOLUME 89 fL (79.0-98.0); MONOCYTES # (AUTO) 0.4 K/uL (0.0-1.0); MONOCYTES % (AUTO) 6.1 % (1.7-9.3); NEUTROPHILS # (AUTO) 3.5 K/uL (1.8-7.7); NEUTROPHILS % (AUTO) 56.6 % (40.0-70.0); PLATELET COUNT (AUTO) 228 K/uL (130-430); RED BLOOD CELL COUNT(AUTO) 4.52 MIL/uL (4.2-6.2); RED CELL DISTRIBUTION WIDTH 13.9 % (9.0-15.0); WHITE BLOOD COUNT (AUTO) 6.2 K/uL (4.8-10.8)
--- NOTE | 2021-05-21 14:45 | NUR ---
Placed in room 07 . Placed on patient monitor, blood pressure machine and pulse oximeter. To gown for exam. Side rails up.
--- NOTE | 2021-05-21 14:57 | NUR ---
ER at bedside examining patient.
[2021-05-21 15:01] LABS: CALCIUM 9.4 mg/dL (8.4-11.0); CREATININE 0.51 mg/dL (0.55-1.30); POTASSIUM 3.5 mmol/L (3.5-5.1)
[2021-05-21 15:10] LABS: ALBUMIN 3.9 g/dL (3.4-4.8); TOTAL BILIRUBIN 0.3 mg/dL (0.0-1.0)
[2021-05-21] MEDS ORDERED: KETOROLAC TROMETHAMINE 15 MG VIAL IM ONE (16:30)
[2021-05-21] MEDS ORDERED: KETOROLAC TROMETHAMINE 15 MG VIAL IVP ONE (16:30)
[2021-05-21] MEDS ORDERED: NAPR-688 PO (16:54)
--- NOTE | 2021-05-21 17:02 | NUR ---
Patient presents to the ER with chest pain since 2 days ago. Today she states it was worse and seeked help. upon assessment, she is having pain in her central chest that radiates to her back feeling like her ribs are being 'squished together". Patient is ambulatory and does not have any pain while walking. Musculoskelatory is WNL. respiratory is normal, unlabored, and even. VSS.
[2021-05-21 17:30] VITALS: BP_SYST 126
--- NOTE | 2021-05-21 17:32 | NUR ---
Patient given written and verbal discharge instructions and verbalizes understanding. ER MD discussed with patient the results and treatment provided. Patient in stable condition. ID arm band removed.. Rx of given naproxen. Patient educated on pain management and to follow up with PMD. Pain Scale . Opportunity for questions provided and answered. Medication side effect fact sheet provided.
== END 2021-05-21 17:32 | disposition home or self-care (01) ==
LOC: SED 13:54
DX: M94.0 Chondrocostal junction syndrome [Tietze] (principal); R03.0 Elevated blood-pressure reading, without diagnosis of hypertension; J45.909 Unspecified asthma, uncomplicated; Z88.6 Allergy status to analgesic agent; Z88.8 Allergy status to other drugs, medicaments and biological substances; Z79.899 Other long term (current) drug therapy
CPT/HCPCS: 36415; 71045; 80053; 84484; 85025; 85379; 93005; 96372; 99285; J1885

== ENCOUNTER 2021-11-03 10:38 | Emergency (ER) | payer MEDICAID ==
[~2021-11-03] VITALS: Ht 152.4 cm; Wt 79.4 kg
[~2021-11-03 10:38] MED LIST changes: +NAPR-688 PO
[2021-11-03 10:45] VITALS: BP_SYST 110
--- NOTE | 2021-11-03 10:45 | NUR ---
Patient triaged and placed in waiting room. VSS and patient appears in no acute distress at this time. Accompanied by SELF, awaiting available bed, and MD notified of need for MSE.
--- NOTE | 2021-11-03 15:39 | NUR ---
ER DR. CASE EXAMINING PT IN TRIAGE
[2021-11-03 16:09] LABS: BASOPHILS % (AUTO) 0.3 % (0.0-2.0); EOSINOPHILS % (AUTO) 0.6 % (0.0-4.0); HEMATOCRIT 40.6 % (36-48); HEMOGLOBIN 13.3 g/dL (12.0-16.0); LYMPHOCYTES # (AUTO) 1.1 K/uL (1.0-5.5); LYMPHOCYTES % (AUTO) 28.9 % (20.5-51.5); MEAN CORPUSCULAR HEMOGLOBIN 29 pg (27-31); MEAN CORPUSCULAR HGB CONC 33 % (32-36); MEAN CORPUSCULAR VOLUME 88 fL (79.0-98.0); MONOCYTES # (AUTO) 0.6 K/uL (0.0-1.0); MONOCYTES % (AUTO) 15.4 % (1.7-9.3); NEUTROPHILS # (AUTO) 2.1 K/uL (1.8-7.7); NEUTROPHILS % (AUTO) 54.8 % (40.0-70.0); PLATELET COUNT (AUTO) 202 K/uL (130-430); RED BLOOD CELL COUNT(AUTO) 4.62 MIL/uL (4.2-6.2); RED CELL DISTRIBUTION WIDTH 14.4 % (9.0-15.0); WHITE BLOOD COUNT (AUTO) 3.8 K/uL (4.8-10.8)
[2021-11-03 16:19] LABS: ANION GAP 8 (5-15); CALCIUM 9.2 mg/dL (8.4-11.0); CHLORIDE 103 mmol/L (98-107); CREATININE 0.66 mg/dL (0.55-1.30); GLUCOSE 89 mg/dL (70-99); POTASSIUM 3.8 mmol/L (3.5-5.1); SODIUM SERUM 139 mmol/L (136-145); UREA NITROGEN, BLOOD 8 mg/dL (8-21)
[2021-11-03 16:23] LABS: GFR AFRICAN AMERICAN 120 mL/min (>90)
[2021-11-03 16:31] LABS: ALANINE AMINOTRANSFERASE 23 U/L (12-78); ALBUMIN 3.8 g/dL (3.4-4.8); ASPARTATE AMINOTRANSFERASE 18 U/L (10-37); TOTAL BILIRUBIN 0.6 mg/dL (0.0-1.0)
[2021-11-03] MEDS ORDERED: HYDROcodone/ACETAMIN 10-325 MG TAB PO ONE ×2 (17:45→18:15)
[2021-11-03] MEDS ORDERED: IBUPROFEN 800 MG TABLET PO ONE (17:45)
[2021-11-03] MEDS ORDERED: HYDR-3917 PO (19:20)
[2021-11-03] MEDS ORDERED: IBUP-1969 PO (19:20)
--- NOTE | 2021-11-03 19:24 | NUR ---
PATIENT CALLED MULTIPLE TIMES FOR MEDS AND DC INSTRUCTIONS AND NO ANSWERS.
--- NOTE | 2021-11-03 19:31 | NUR ---
RE TRY TO CALL PT FOR MEDS AND DC INSTRUCTION, NO ANSWER.
== END 2021-11-03 19:38 | disposition home or self-care (01) ==
LOC: SED 10:38
DX: R20.2 Paresthesia of skin (principal); R51.9 Headache, unspecified; J45.909 Unspecified asthma, uncomplicated; Z88.6 Allergy status to analgesic agent; Z91.018 Allergy to other foods; Z79.899 Other long term (current) drug therapy
CPT/HCPCS: 36415; 70450-TC; 71045; 76376; 80053; 84484; 85025; 93005; 99285

== ENCOUNTER 2022-03-30 18:52 | Emergency (ER) | payer MEDICAID ==
[~2022-03-30] VITALS: Ht 152.4 cm; Wt 74.8 kg
[~2022-03-30 18:52] MED LIST changes: +HYDR-3917 PO; +IBUP-1969 PO
--- NOTE | 2022-03-30 19:00 | NUR ---
Patient to ER bed 06 to gown for evaluation. Side rails up. Report given to Eli PORTILLO.
[2022-03-30 19:01] VITALS: BP_SYST 105
--- NOTE | 2022-03-30 19:15 | NUR ---
Dr Virk evaluating patient at bedside
--- NOTE | 2022-03-30 19:21 | NUR ---
Received in ED 6. AAo x4, VSS, RR even and unlabored. 20 G INT placed on R AC SL at this time. C/o abd pain radiating to back, umblicus and groin. C/o nausea. Denies vomitting, diarrhea at this time. urine, blood sample collected and handed to the Lab personnel. Pending CT. No s/sx of acute distress noted at this time.
[2022-03-30 19:26] LABS: BASOPHILS % (AUTO) 0.4 % (0.0-2.0); EOSINOPHILS # (AUTO) 0.2 K/uL (0.0-0.4); EOSINOPHILS % (AUTO) 2.4 % (0.0-4.0); HEMATOCRIT 41.7 % (36-48); HEMOGLOBIN 13.9 g/dL (12.0-16.0); LYMPHOCYTES # (AUTO) 2.1 K/uL (1.0-5.5); MEAN CORPUSCULAR HEMOGLOBIN 30 pg (27-31); MEAN CORPUSCULAR HGB CONC 33 % (32-36); MEAN CORPUSCULAR VOLUME 91 fL (79.0-98.0); MONOCYTES # (AUTO) 0.4 K/uL (0.0-1.0); MONOCYTES % (AUTO) 5.5 % (1.7-9.3); NEUTROPHILS # (AUTO) 5.3 K/uL (1.8-7.7); NEUTROPHILS % (AUTO) 65.7 % (40.0-70.0); PLATELET COUNT (AUTO) 248 K/uL (130-430); RED BLOOD CELL COUNT(AUTO) 4.58 MIL/uL (4.2-6.2); RED CELL DISTRIBUTION WIDTH 14.4 % (9.0-15.0); WHITE BLOOD COUNT (AUTO) 8.1 K/uL (4.8-10.8)
[2022-03-30 19:26] LABS: BILIRUBIN,URINE NEGATIVE (NEGATIVE); BLOOD, URINE 1+ (NEGATIVE); CLARITY/URINE CLEAR (CLEAR); COLOR,URINE YELLOW (YELLOW); GLUCOSE,URINE NEGATIVE (NEGATIVE); KETONES,URINE NEGATIVE (NEGATIVE); LEUKOCYTE ESTERASE ,URINE NEGATIVE (NEGATIVE); NITRITE, URINE NEGATIVE (NEGATIVE); PROTEIN URINE NEGATIVE (NEGATIVE); UROBILINOGEN,URINE 0.2 (0.2-1.0)
[2022-03-30 19:34] LABS: BACTERIA,URINE RARE /HPF (None Seen); WBC,URINE NONE SEEN /HPF (0-3)
[2022-03-30 19:35] LABS: MUCUS,URINE 1+ /LPF (None Seen)
[2022-03-30 19:55] LABS: ANION GAP 10 (5-15); CALCIUM 8.7 mg/dL (8.4-11.0); CHLORIDE 104 mmol/L (98-107); CREATININE 0.55 mg/dL (0.55-1.30); GLUCOSE 118 mg/dL (70-99); UREA NITROGEN, BLOOD 16 mg/dL (8-21)
[2022-03-30 19:58] LABS: ALANINE AMINOTRANSFERASE 23 U/L (12-78); AMYLASE 40 U/L (0-100); ASPARTATE AMINOTRANSFERASE 18 U/L (10-37); C-REACTIVE PROTEIN QUANT < 0.2 mg/dL (0-0.5); GFR AFRICAN AMERICAN 147 mL/min (>90); LIPASE 93 U/L (73-393); TOTAL BILIRUBIN 0.5 mg/dL (0.0-1.0)
[2022-03-30] MEDS ORDERED: ONDANSETRON HCL 4 MG/2 ML VIAL IVP ONE (20:15)
[2022-03-30] MEDS ORDERED: MORPHINE 2 MG/ML INJ. SYRINGE IVP ONE (20:15)
[2022-03-30] MEDS ORDERED: HYDR-3917 PO (21:25)
[2022-03-30] MEDS ORDERED: OMEP20CA15 PO (21:25)
[2022-03-30] MEDS ORDERED: IBUP-1969 PO (21:25)
--- NOTE | 2022-03-30 22:06 | NUR ---
Patient given written and verbal discharge instructions and verbalizes understanding. ER MD discussed with patient the results and treatment provided. Patient in stable condition. ID arm band removed. Rx of Hydrocodone, Ibuprofen and Omeprazole given. Patient educated on pain management and to follow up with PMD. Pain Scale . Opportunity for questions provided and answered. Medication side effect fact sheet provided.
[2022-03-30 22:10] VITALS: BP_SYST 126
[2022-03-31] MEDS ORDERED: NOREPINEPHRINE 4 MG/4 ML VIAL IV ONE (05:50)
== END 2022-03-30 22:10 | disposition home or self-care (01) ==
LOC: SED 18:52
DX: R10.33 Periumbilical pain (principal); R11.0 Nausea; J45.909 Unspecified asthma, uncomplicated; Z91.018 Allergy to other foods; Z88.6 Allergy status to analgesic agent; Z79.899 Other long term (current) drug therapy
CPT/HCPCS: 99285; 74176; 96374; 96375; 80053; 81000; 82150; 84703; 83690; 85025; 86140; 36415; 76376; 83605; J2405; J2270

== ENCOUNTER 2022-06-07 13:01 | Emergency (ER) | payer MEDICAID ==
[~2022-06-07] VITALS: Ht 152.4 cm; Wt 81.6 kg
[~2022-06-07 13:01] MED LIST changes: +OMEP20CA15 PO
[2022-06-07 13:02] VITALS: BP_SYST 12
[2022-06-07] MEDS ORDERED: KETOROLAC TROMETHAMINE 30 MG VIAL IM ONE (14:45)
[2022-06-07 15:47] VITALS: BP_SYST 12
== END 2022-06-07 15:46 | disposition home or self-care (01) ==
LOC: SED 13:01
DX: M79.605 Pain in left leg (principal); J45.909 Unspecified asthma, uncomplicated; Z88.6 Allergy status to analgesic agent; Z91.018 Allergy to other foods; Z79.899 Other long term (current) drug therapy
CPT/HCPCS: 99283; 96372; J1885

== ENCOUNTER 2023-10-20 14:03 | Emergency (ER) | payer MEDICAID, OTHER ==
[~2023-10-20] VITALS: Ht 152.4 cm; Wt 113.4 kg
[2023-10-20 14:09] VITALS: BP_SYST 140; PULSE 102; RESP 22; TEMP 98.3; O2SAT 97
[2023-10-20] MEDS: IPRATROPIUM/ALBUTEROL SULFATE 3 ML AMPUL.NEB (DUONEB) INH ONE ×2 (14:37→16:35)
[2023-10-20] MEDS: guaiFENesin/DEXTROMETHORPHAN 10 ML UDC PO ONE (15:07)
[2023-10-20 15:24] LABS: INFLUENZA TYPE A NEGATIVE (NEGATIVE); INFLUENZA TYPE B NEGATIVE (NEGATIVE)
[2023-10-20] MEDS: DEXAMETHASONE SOD PHOSPHATE 10 MG/ML VIAL IM ONE (15:30)
[2023-10-20] MEDS ORDERED: PRED20TA PO (16:34)
[2023-10-20] MEDS ORDERED: BENZ100C92 PO (16:34)
[2023-10-20] MEDS ORDERED: ALBMDI INH (16:34)
[2023-10-20 17:13] VITALS: BP_SYST 140; PULSE 78; RESP 18; TEMP 98.3; O2SAT 98
== END 2023-10-20 16:53 | disposition home or self-care (01) ==
LOC: SED 14:03
DX: R05.9 Cough, unspecified (principal); R09.89 Other specified symptoms and signs involving the circulatory and respiratory systems; Z20.822 Contact with and (suspected) exposure to COVID-19; J45.909 Unspecified asthma, uncomplicated; I10 Essential (primary) hypertension; G43.909 Migraine, unspecified, not intractable, without status migrainosus; G89.29 Other chronic pain; Z85.41 Personal history of malignant neoplasm of cervix uteri; Z88.6 Allergy status to analgesic agent; Z91.018 Allergy to other foods; Z79.899 Other long term (current) drug therapy; Z79.2 Long term (current) use of antibiotics
CPT/HCPCS: 99284; 71045; 87426; 36415; 94640; 96372; 87804 ×2; J1100